=== PATIENT | male | born 1935 | race Caucasian/White ===

== ENCOUNTER 2019-06-27 10:02 | Emergency (ER) | payer MEDICARE ==
[~2019-06-27] VITALS: Ht 170.2 cm; Wt 81.7 kg
[2019-06-27] MEDS ORDERED: FURO20 (10:21)
[2019-06-27] MEDS ORDERED: ACET325 (10:21)
[2019-06-27] MEDS ORDERED: Azor 5-20 MG T1 EACH (10:21)
[2019-06-27] MEDS ORDERED: ALLOPURINOL1 GM (10:22)
[2019-06-27] MEDS ORDERED: Sotalol80 MG PO (10:23)
[2019-06-27] MEDS ORDERED: WARF5 (10:23)
[2019-06-27] MEDS ORDERED: LOSA25 (10:23)
[2019-06-27] MEDS ORDERED: DIAZ2 (10:23)
[2019-06-27] MEDS ORDERED: ASPI81CH (10:23)
[2019-06-27] MEDS ORDERED: ATOR10 (10:45)
[2019-06-27] MEDS ORDERED: MEGA RED (10:45)
[2019-06-27] MEDS ORDERED: COLACE CLEAR50 MG PO (10:45)
[2019-06-27] MEDS ORDERED: AMLO10 PO (10:45)
[2019-06-27] MEDS ORDERED: MELO7.5 (10:46)
== END 2019-06-27 11:48 | disposition home or self-care (01) ==
LOC: ER 10:02
DX: S61.210A Laceration without foreign body of right index finger without damage to nail, initial encounter (principal); Z23 Encounter for immunization; Z91.030 Bee allergy status; Z88.0 Allergy status to penicillin; Z79.899 Other long term (current) drug therapy; Z79.82 Long term (current) use of aspirin; Z79.01 Long term (current) use of anticoagulants; W26.8XXA Contact with other sharp object(s), not elsewhere classified, initial encounter
CPT/HCPCS: 12002; 90471; 90714; 99282

== ENCOUNTER 2019-07-04 07:34 | Emergency (ER) | payer MEDICARE ==
[~2019-07-04] VITALS: Ht 175.3 cm; Wt 83.9 kg
[~2019-07-04 07:34] MED LIST: ACET325; ALLOPURINOL1 GM; AMLO10 PO; ASPI81CH; ATOR10; Azor 5-20 MG T1 EACH; COLACE CLEAR50 MG PO; DIAZ2; FURO20; LOSA25; MEGA RED; MELO7.5; Sotalol80 MG PO; WARF5
== END 2019-07-04 08:51 | disposition home or self-care (01) ==
LOC: ER 07:34
DX: S61.211D Laceration without foreign body of left index finger without damage to nail, subsequent encounter (principal); Z88.0 Allergy status to penicillin; Z91.030 Bee allergy status; Z79.899 Other long term (current) drug therapy; Z87.891 Personal history of nicotine dependence

== ENCOUNTER 2019-10-10 14:29 | Emergency (ER) | payer MEDICARE ==
[~2019-10-10] VITALS: Ht 172.7 cm; Wt 72.6 kg
[2019-10-10 14:55] LABS: BASOPHILS ABSOLUTE AUTO 0.04 K/mm3 (0.00-0.23); BASOPHILS PERCENT AUTO 1 % (0-2); EOSINOPHILS ABSOLUTE AUTO 0.11 K/mm3 (0.00-0.68); EOSINOPHILS PERCENT AUTO 2 % (0-6); Hematocrit 46.1 % (37.0-53.0); Hemoglobin 15.9 g/dL (13.5-17.5); IMMATURE GRAN ABSOLUTE AUTO 0.02 K/mm3 (0.00-0.10); IMMATURE GRAN PERCENT AUTO 0 % (0-1); LYMPHOCYTES ABSOLUTE AUTO 1.62 K/mm3 (0.84-5.20); LYMPHOCYTES PERCENT AUTO 24 % (21-46); MONOCYTES ABSOLUTE AUTO 0.35 K/mm3 (0.16-1.47); MONOCYTES PERCENT AUTO 5 % (4-13); Mean Corpuscular HGB Conc 34.5 g/dL (31.5-36.5); Mean Corpuscular Volume 87 fL (80-100); Mean Platelet Volume 11.7 fL (9.1-12.4); NEUTROPHILS ABSOLUTE AUTO 4.72 K/mm3 (1.96-9.15); NEUTROPHILS PERCENT AUTO 69 % (41-73); Platelet Count 221 K/mm3 (150-400); RDW Coefficient Variation 12.4 % (11.7-14.2); White Blood Cell Count 6.86 K/mm3 (4.00-11.30)
[2019-10-10 15:07] LABS: Anion Gap 6 mmol/L (6-16); Blood Urea Nitrogen 23 mg/dL (8-24); Bun/Creatinine Ratio 23.9 (12.0-20.0); CO2, Blood 27 mmol/L (21-32); Calcium, Blood 9.2 mg/dL (8.5-10.1); Chloride, Blood 106 mmol/L (98-108); Creatinine, Blood 0.96 mg/dL (0.60-1.20); Glomerular Filtration Rate >60 (60-); Glucose, Blood 119 mg/dL (70-99); Potassium, Blood 4.6 mmol/L (3.5-5.5); Sodium, Blood 139 mmol/L (136-145); Troponin I <0.015 ng/mL (0.000-0.040)
[2019-10-10 15:15] LABS: International Normalized Ratio 3.44; Prothrombin Time Results 34.3 Sec (9.7-11.5)
== END 2019-10-10 16:20 | disposition home or self-care (01) ==
LOC: ER 14:29
PROVIDERS: Emergency Medicine
DX: E86.0 Dehydration (principal); M10.9 Gout, unspecified; E78.00 Pure hypercholesterolemia, unspecified; Z87.891 Personal history of nicotine dependence; Z88.0 Allergy status to penicillin; Z91.030 Bee allergy status; Z79.82 Long term (current) use of aspirin; Z79.01 Long term (current) use of anticoagulants; Z79.899 Other long term (current) drug therapy
CPT/HCPCS: 71045; 80048; 84484; 85025; 85610; 93005; 93010; 99284-25; J7030